=== PATIENT | male | born 1940 ===

== ENCOUNTER 2023-07-13 14:41 | Emergency (ER) | payer MEDICARE, OTHER ==
[~2023-07-13] VITALS: Ht 182.9 cm; Wt 86.2 kg
[2023-07-13 15:05] VITALS: BP 148/100
[2023-07-13 16:12] LABS: Source, Urine Clean Catch
[2023-07-13 16:50] LABS: Appearance, Urine Clear (Clear); Bilirubin, Urine Neg (Neg); Blood, Urine Neg (Neg); Color, Urine Yellow (P-Yellow); Glucose Qualitative, Urine Neg (Neg); Ketones, Urine Neg (Neg); Leukocyte Esterase, Urine Neg (Neg); Nitrite, Urine Neg (Neg); Protein, Urine Neg (Neg); Specific Gravity, Urine 1.015 (1.003-1.022); Urobilinogen, Urine 1+ (Normal)
== END 2023-07-13 17:26 | disposition home or self-care (01) ==
LOC: ER 14:41
PROVIDERS: Physician Assistant
DX: R33.9 Retention of urine, unspecified (principal)
CPT/HCPCS: 51702; 51798; 81003; 99283-25

== ENCOUNTER 2023-08-25 19:28 | Inpatient (IN) | payer MEDICARE, OTHER ==
[~2023-08-25] VITALS: Ht 188 cm; Wt 90.5 kg
[2023-08-25] MEDS ORDERED: BREZTRI AEROS10.7 GM INH (19:50)
[2023-08-25] MEDS ORDERED: GLIMEPIRIDE2 M2 PO (19:50)
[2023-08-25] MEDS ORDERED: METFORMIN HCL500 M2 PO (19:50)
[2023-08-25] MEDS ORDERED: CARVEDILOL12.5 MG PO (19:50)
[2023-08-25] MEDS ORDERED: FINA5 PO (19:50)
[2023-08-25 19:52] LABS: BASOPHILS ABSOLUTE AUTO 0.04 K/mm3 (0.00-0.23); BASOPHILS PERCENT AUTO 0 % (0-2); EOSINOPHILS ABSOLUTE AUTO 0.02 K/mm3 (0.00-0.68); EOSINOPHILS PERCENT AUTO 0 % (0-6); IMMATURE GRAN ABSOLUTE AUTO 0.13 K/mm3 (0.00-0.10); IMMATURE GRAN PERCENT AUTO 1 % (0-1); LYMPHOCYTES ABSOLUTE AUTO 1.18 K/mm3 (0.84-5.20); LYMPHOCYTES PERCENT AUTO 7 % (21-46); MONOCYTES ABSOLUTE AUTO 1.65 K/mm3 (0.16-1.47); MONOCYTES PERCENT AUTO 9 % (4-13); Mean Corpuscular HGB 29.5 pg (26.0-34.0); Mean Corpuscular HGB Conc 35.9 g/dL (31.5-36.5); Mean Corpuscular Volume 82 fL (80-100); Mean Platelet Volume 8.4 fL (9.1-12.4); NEUTROPHILS ABSOLUTE AUTO 15.26 K/mm3 (1.96-9.15); NEUTROPHILS PERCENT AUTO 84 % (41-73); Platelet Count 258 K/mm3 (150-400); RDW Coefficient Variation 13.2 % (11.7-14.2); RDW Standard Deviation 39.6 fL (35.1-46.3); Red Blood Cell Count 4.74 M/mm3 (4.30-5.90); White Blood Cell Count 18.28 K/mm3 (4.00-11.30)
[2023-08-25 20:26] LABS: Source, Urine Clean Catch
[2023-08-25 20:30] LABS: Thyroid Stimulating Hormone 2.1 uIU/mL (0.360-4.800)
[2023-08-25 20:31] LABS: Appearance, Urine Cloudy (Clear); Bilirubin, Urine Neg (Neg); Blood, Urine 3+ (Neg); Color, Urine Yellow (P-Yellow); Glucose Qualitative, Urine Neg (Neg); Ketones, Urine 2+ (Neg); Leukocyte Esterase, Urine 1+ (Neg); Nitrite, Urine Neg (Neg); Protein, Urine 2+ (Neg); Urobilinogen, Urine NORM (Normal)
[2023-08-25 20:35] LABS: Base Excess Venous -2.9 mmol/L; Bicarbonate Venous 21.8 mmol/L (24.0-30.0); PCO2 Venous 37.7 mmHg (38-42); pH Blood Venous 7.38 (7.34-7.37)
[2023-08-25 20:35] LABS: Albumin, Blood 2.5 g/dL (3.4-5.0); Albumin/Globulin Ratio 0.5 (0.8-1.8); Bilirubin, Total 1.4 mg/dL (0.1-1.0); Calcium, Blood 8.7 mg/dL (8.5-10.1); Globulin, Blood 4.8 g/dL (2.2-4.0); Potassium, Blood 4.4 mmol/L (3.5-5.5); Total Protein, Blood 7.3 g/dL (6.4-8.2)
[2023-08-25 20:44] LABS: Bacteria Many /hpf; Red Blood Cells, Urine 0-2 /hpf (0-2); Squamous Epithelial Cells Not Seen /hpf (Few)
[2023-08-25 20:59] LABS: Influenza A, PCR NEGATIVE (NEGATIVE); Influenza B, PCR NEGATIVE (NEGATIVE); Resp Syncytial Virus, PCR NEGATIVE (NEGATIVE); SARS-Cov-2 (COVID-19) PCR, MMC NEGATIVE (NEGATIVE)
[2023-08-26] MEDS ORDERED: LOSARTAN POTASS25 M2 PO (00:53)
[2023-08-26] MEDS ORDERED: TAMSULOSIN HCL0.4 M1 PO (00:53)
[2023-08-26] MEDS ORDERED: FLUTICASONE PRO16 GM (00:54)
--- NOTE | 2023-08-26 01:01 | NUR ---
ADMIT NOTE PT ADMITTED TO UNIT AT 0105. BROUGHT TO UNIT BY CRYPTOLOGIC TECHNICIAN OPERATOR/ANALYST TO FLOOR BY SALVATORE. PT ASSISTED BY SLIDER SHEET TO HOSPITAL BED. HURLEY PATENT AND DRAINING ORANGE URINE. PT ORIENTED TO UNIT AND CALL LIGHT. EDUCATED ON FIRE SAFETY AND PREVENTION. RECEIVED REPORT FROM GALA COOLEY. WILL CONTINUE TO MONITOR.
[2023-08-26 01:13] VITALS: BP 106/57
--- NOTE | 2023-08-26 04:16 | NUR ---
HIFT SUMMARY PT ALERT BUT APPEARS CONFUSED. ANSWERS MOST QUESTIONS APPROPRIATELY. HOWEVER PT IS HAVING VISUAL HALLUCINATIONS. PT IS ALSO TRYING TO PULL AT IV LINES AND HURLEY. COVERED PT UP AND WRAPPED IV. PT IS REDIRECTABLE AND COOPERATIVE. NS INFUISING AT 150 ML/HR. HURLEY IN PLACE DRAINING ORANGE URINE WITH SEDIMENT SEEN. PT COMPLAINS OF CHRONIC PACK PAIN BUT REFUSES PAIN MEDICATIONS. STATES HE HAS LIVED WITH THE CONDITION FOR 60 YEARS AND "PAIN MEDS DONT WORK". BED KEPT IN LOWEST POSITION WITH CALL LIGHT IN REACH. BED ALARM SET. CALL LIGHT WITHIN REACH.
[2023-08-26 05:05] VITALS: BP 138/75
[2023-08-26 06:35] LABS: BASOPHILS ABSOLUTE AUTO 0.04 K/mm3 (0.00-0.23); BASOPHILS PERCENT AUTO 0 % (0-2); EOSINOPHILS ABSOLUTE AUTO 0.13 K/mm3 (0.00-0.68); EOSINOPHILS PERCENT AUTO 1 % (0-6); Hematocrit 36.1 % (37.0-53.0); Hemoglobin 12.9 g/dL (13.5-17.5); IMMATURE GRAN ABSOLUTE AUTO 0.07 K/mm3 (0.00-0.10); IMMATURE GRAN PERCENT AUTO 1 % (0-1); LYMPHOCYTES ABSOLUTE AUTO 1.06 K/mm3 (0.84-5.20); LYMPHOCYTES PERCENT AUTO 8 % (21-46); MONOCYTES PERCENT AUTO 10 % (4-13); Mean Corpuscular HGB 30.2 pg (26.0-34.0); Mean Corpuscular HGB Conc 35.7 g/dL (31.5-36.5); Mean Corpuscular Volume 85 fL (80-100); Mean Platelet Volume 8.2 fL (9.1-12.4); NEUTROPHILS ABSOLUTE AUTO 10.85 K/mm3 (1.96-9.15); NEUTROPHILS PERCENT AUTO 81 % (41-73); Platelet Count 217 K/mm3 (150-400); RDW Coefficient Variation 13.5 % (11.7-14.2); RDW Standard Deviation 41.9 fL (35.1-46.3); Red Blood Cell Count 4.27 M/mm3 (4.30-5.90); White Blood Cell Count 13.45 K/mm3 (4.00-11.30)
[2023-08-26 07:02] LABS: Albumin, Blood 2.2 g/dL (3.4-5.0); Albumin/Globulin Ratio 0.5 (0.8-1.8); Bilirubin, Total 0.9 mg/dL (0.1-1.0); Bun/Creatinine Ratio 26.7 (12.0-20.0); Creatinine, Blood 0.94 mg/dL (0.60-1.20); Globulin, Blood 4.1 g/dL (2.2-4.0); Potassium, Blood 3.8 mmol/L (3.5-5.5); Total Protein, Blood 6.3 g/dL (6.4-8.2)
[2023-08-26 07:26] VITALS: BP 148/72
--- NOTE | 2023-08-26 12:34 | NUR ---
PATIENT'S STATES THAT THE PATIENT HASN'T BEEN ABLE TO WALK FOR A WEEK. HE HAS BEEN IN A CHAIR AT HOME.
--- NOTE | 2023-08-26 14:29 | NUR ---
OFFERED TO REPOSITION PATIENT; HE REFUSED OFFERED TO CLEAN HIS DENTURES; HE REFUSED OFFERED TO GIVE HIM A BEDBATH; HE REFUSED OFFERED TO GET HIM SOMETHING FOR PAIN; HE REFUSED OFFERED HIM SOMETHING TO EAT/DRINK; HE REFUSED HE WAS AGREEABLE TO CATH/THOMAS CARE; CLEANED CATH AND THOMAS AREA OF DRIED BLOOD. HURLEY IS DRAINING BLOOD. PATIENT HASN'T BEEN PULLED ON HURLEY THIS AFTERNOON. HE REQUESTED TO NOT BE TOUCHED AND TO BE LEFT ALONE. CALL LIGHT WITHIN REACH. PATIENT'S HAS BEEN AT BEDSIDE THROUGHOUT AFTERNOON
[2023-08-26 16:13] VITALS: BP 164/87
--- NOTE | 2023-08-26 16:36 | NUR ---
INCREASED AGITATION THIS AFTERNOON. PATIENT ADAMANTLY TRYING TO GET UP OUT OF BED AND REFUSING STAFF TO INTERVENE. HE IS POINTING OUT THE WINDOW AND SHOUTING OUT PEOPLE'S NAMES THAT ARE NOT THERE. CALL MADE TO DR. VALDEZ. AWAITING ORDERS AT THIS TIME.
[2023-08-26 17:22] VITALS: BP 167/97
--- NOTE | 2023-08-26 17:35 | NUR ---
SHIFT SUMMARY: PT IS A 83 YEAR OLD MALE HERE FOR SEPSIS RELATED TO UTI. HE IS CONFUSED, HAS BECOMING INCREASINGLY AGITATED THROUGHOUT THE SHIFT; PULLING AT HURLEY, TRYING TO GET UP OUT OF BED, AND REFUSING CARE AND COMMANDS. HE HAS BEEN HALLUCINATING SHOUTING AND POINTING OUT AT OBJECTS AND PEOPLE NOT PRESENT. HE HAS LITTLE URINARY OUTPUT IN HIS HURLEY DRAINAGE BAG, MOSTLY PRESENT IS BLOOD. BED IN LOWEST POSITION, CALL LIGHT WITHIN REACH, AND 3X BED RAILS ARE UP. BESIDES AGITATION, NO SIGNS OR SYMPTOMS OF DISTRESS. PLAN OF CARE ONGOING.
--- NOTE | 2023-08-26 17:45 | NUR ---
PT WITH INCREASED AGITATION, CALL TO DR VALDEZ, ORDER RECIEVED FOR ZYPREXA, IM MED ADMINISTERED
[2023-08-26 19:30] VITALS: BP 138/104
[2023-08-27 03:15] VITALS: BP 146/92
--- NOTE | 2023-08-27 03:37 | NUR ---
SHIFT SUMMARY PT VERY CONFUSED AT START OF SHIFT. EXPERIENCING VISUAL HALLUCINATIONS AND HAVING CONVERSATIONS WITH PEOPLE WHO ARE NOT PRESENT IN THE ROOM. GRAND DAUGHTER AT BEDSIDE AND STATES THIS IS NOT HIS BASELINE. PT PULLING ON HURLEY AND LINES. HURLEY HAD BLOODY URINE. IRRIGATED HURLEY AND IT IS NOW DRAINING DARK YELLOW URINE TO GRAVITY. PT MUCH LESS CONFUSED SINCE AND WAS ABLE TO FALL ASLEEP. CURRENTLY RESTING IN BED. BED KEPT IN LOWEST POSITION WITH CALL LIGHT WITHIN REACH. WILL CONTINUE TO MONITOR.
[2023-08-27 05:13] LABS: Hematocrit 34.4 % (37.0-53.0); Hemoglobin 12.3 g/dL (13.5-17.5); Mean Corpuscular HGB 29.5 pg (26.0-34.0); Mean Corpuscular HGB Conc 35.8 g/dL (31.5-36.5); Mean Corpuscular Volume 83 fL (80-100); Mean Platelet Volume 8.3 fL (9.1-12.4); Platelet Count 220 K/mm3 (150-400); RDW Coefficient Variation 13.5 % (11.7-14.2); RDW Standard Deviation 40.9 fL (35.1-46.3); Red Blood Cell Count 4.17 M/mm3 (4.30-5.90); White Blood Cell Count 12.73 K/mm3 (4.00-11.30)
[2023-08-27 06:21] LABS: Anion Gap 10 mmol/L (6-16); Blood Urea Nitrogen 18 mg/dL (8-24); Bun/Creatinine Ratio 21.4 (12.0-20.0); CO2, Blood 22 mmol/L (21-32); Calcium, Blood 8.2 mg/dL (8.5-10.1); Chloride, Blood 98 mmol/L (98-108); Creatinine, Blood 0.84 mg/dL (0.60-1.20); Glomerular Filtration Rate 85 (60-); Glucose, Blood 112 mg/dL (70-99); Magnesium, Blood 1.8 mg/dL (1.6-2.4); Phosphorus, Blood 2.5 mg/dL (2.5-4.9); Potassium, Blood 3.3 mmol/L (3.5-5.5); Sodium, Blood 130 mmol/L (136-145)
[2023-08-27 16:21] VITALS: BP 117/105
--- NOTE | 2023-08-27 17:05 | NUR ---
SHIFT SUMMARY PATIENT RESTING MOST OF THE DAY. PATIENT AROUSABLE AND INTERACTIVE WHEN AWAKE. PATIENT CONFUSED BUT COOPERATIVE. PATIENT HAVING BACK SPASMS WITH ANY MOVEMENTS. PATIENT SENT TO CT EARLIER TODAY. CONTINUES TO HAVE BLOOD TINGED URINE BUT LIGHTENING THROUGHOUT THE SHIFT.
[2023-08-27 19:42] VITALS: BP 121/66
[2023-08-28 02:26] VITALS: BP 153/80
[2023-08-28 05:46] LABS: Hematocrit 35.5 % (37.0-53.0); Hemoglobin 12.2 g/dL (13.5-17.5); Mean Corpuscular HGB 29.2 pg (26.0-34.0); Mean Corpuscular HGB Conc 34.4 g/dL (31.5-36.5); Mean Corpuscular Volume 85 fL (80-100); Mean Platelet Volume 8.1 fL (9.1-12.4); Platelet Count 225 K/mm3 (150-400); RDW Coefficient Variation 13.4 % (11.7-14.2); Red Blood Cell Count 4.18 M/mm3 (4.30-5.90); White Blood Cell Count 10.45 K/mm3 (4.00-11.30)
[2023-08-28 06:44] LABS: Bun/Creatinine Ratio 19.5 (12.0-20.0); Calcium, Blood 8.2 mg/dL (8.5-10.1); Creatinine, Blood 0.82 mg/dL (0.60-1.20); Potassium, Blood 3.8 mmol/L (3.5-5.5)
[2023-08-28 07:25] VITALS: BP 172/91
--- NOTE | 2023-08-28 07:25 | NUR ---
REPORT RECEIVED VERIFIED A/O X 2 PLEASENT AND COOPERATIVE. HURLEY DRAINING CLEAR YELLO NO S/S BLEEDING. PT SO FAR HAS HALLED APPROPRIATLY BED CHECK IN PLACE. IV INFUSING AND [facility] PT SHOWING SOME CONFUSION, HE REMAINS COOPERATIVE.
[2023-08-28 15:41] VITALS: BP 183/96
--- NOTE | 2023-08-28 18:41 | NUR ---
SHIFT SUMMARY PATIENT CONTINUES TO BE CONFUSED AND HAVING EPISODES OF HALLUCINATIONS. PATIENT MEDICATED WITH PRN DOSE OF ZYPREXA FOR INCREASED AGITATION THIS AFTERNOON AND ATTEMPTING TO CLIMB OUT OF BED. PATIENT WORKED WITH PT. PATIENT CONTINUES TO BE A LIFT ONLY. PATIENT VERY UNSTEADY AND NOT FOLLOWING VERBAL CUES WITH PT. PATIENT BELIEVED THAT HE WAS IN HIS HOUSE AND UNABLE TO REORIENT PATIENT. SPOKE WITH AND SON ABOUT DISCHARGE PLAN. PATIENT TO DISCHARGE WITH HOSPICE.
[2023-08-28 19:42] VITALS: BP 158/83
[2023-08-29 02:25] VITALS: BP 172/106
--- NOTE | 2023-08-29 06:33 | NUR ---
SHIFT SUMMARY: PT IS ADMITTED FOR SEPSIS AND IS A DNR. HE IS ALERT AND ABLE TO MAKE SOME NEEDS KNOWN. HAS HAD PERIODS OF CONFUSION WHERE HE WAS NOT ABLE TO STATE WHERE HE WAS TIME OR SITUATION BUT WAS ABLE TO BE REORIENTATED WITHOUT ISSUE. ADLs HAVE BEEN 1P MOD DEPENDING ON ACTIVITY. IV TO RIGHT WRIST IS PATENT WITH A DRESSING THAT IS CDI. FOLLY IS INTACT AND DRAINING DARK JOANNA URINE IN MODERATE AMOUNTS.
[2023-08-29 07:18] VITALS: BP 157/99
[2023-08-29] MEDS ORDERED: AMOX-CLAV 875-1 EAC1 PO (12:38)
--- NOTE | 2023-08-29 13:00 | NUR ---
SHIFT SUMMARY AND DISCHARGE PATIENT DISCHARGED TO HOME WITH [facility]. PATIENT ALERT AND INTERACTIVE BUT VERY CONFUSED AT BEDSIDE. DISCHARGE INFORMATION SENT HOME WITH PATIENT. REQUESTING ANTIBIOTICS TO BE CALLED TO [facility]. IV DC'D PRIOR TO DISCHARGE. PATIENT TRANSPORTED HOME VIA [facility].
== END 2023-08-29 12:55 | disposition hospice, home (50) | DRG 698 ==
LOC: ER 19:28 → MEDS 22:22 → ENPENDDIS 08-29 12:15 → MEDS 08-29 12:55
PROVIDERS: Family Medicine; Internal Medicine; Student in an Organized Health Care Education/Training Program; ADMIT Internal Medicine
DX: T83.511A Infection and inflammatory reaction due to indwelling urethral catheter, initial encounter (principal); A41.9 Sepsis, unspecified organism; G92.8 Other toxic encephalopathy; R65.20 Severe sepsis without septic shock; I67.89 Other cerebrovascular disease; F01.A18 Vascular dementia, mild, with other behavioral disturbance; N39.0 Urinary tract infection, site not specified; Z66 Do not resuscitate; J84.10 Pulmonary fibrosis, unspecified; E11.9 Type 2 diabetes mellitus without complications; M54.9 Dorsalgia, unspecified; G89.29 Other chronic pain; N40.1 Benign prostatic hyperplasia with lower urinary tract symptoms; R74.8 Abnormal levels of other serum enzymes; R33.8 Other retention of urine; Y84.6 Urinary catheterization as the cause of abnormal reaction of the patient, or of later complication, without mention of misadventure at the time of the procedure; B95.2 Enterococcus as the cause of diseases classified elsewhere; Z11.52 Encounter for screening for COVID-19; Z79.899 Other long term (current) drug therapy; Z79.84 Long term (current) use of oral hypoglycemic drugs; Z90.49 Acquired absence of other specified parts of digestive tract; Z87.891 Personal history of nicotine dependence
CPT/HCPCS: 0241U; 36415; 51702; 70450; 71046; 80048; 80053; 80069; 81001; 82550; 82803; 82947; 83605; 83735; 84145; 84443; 84484; 85025; 85027; 87040; 87077; 87086; 87186; 93005; 93010; 96365; 96368; 97110; 97161; 97166; 97530; 97535; 99285-25; A9270; J0295; J0360; J0696; J1650; J7030